=== PATIENT | male | born 1975 | race Caucasian/White ===

== ENCOUNTER 2018-01-17 10:43 | Inpatient (IN) | payer OTHER ==
--- NOTE | 2018-01-17 10:55 | ER Document Report ---
ED General - General Mode of Arrival: Medic Information source: Patient <MADDY BERNAL - Last Filed: 01/17/18 19:38> <MARIELOS BALTAZAR - Last Filed: 01/17/18 19:40> - General Stated Complaint: POSSIBLE SNAKE BITE Notes: 42 y.o male with a PMHx of anxiety for which he takes Paxil presents to the ED via EMS for a copperhead bite. 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 EMS reports no edema to LT hand upon arrival and denies giving any medication en route. EMS reports onset of edema at 1020 this morning, about 15 minutes after being with EMS, when remeasured at 1030 edema had increased. Pt is diaphoretic and cannot move his fingers well. He reports LT hand pain and nausea but denies any vomiting, trouble breathing or any CP. 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 denies: Chest pain Respiratory: See HPI. denies: Short of breath Gastrointestinal: See HPI, Nausea. denies: Vomiting Genitourinary: No symptoms reported Male Genitourinary: No symptoms reported Musculoskeletal: See HPI, Other - LT hand pain Skin: See HPI, Other - Snake bite, edema Hematologic/Lymphatic: No symptoms reported Neurological/Psychological: No symptoms reported -: Yes All other systems reviewed and negative <MADDY BERNAL - Last Filed: 01/17/18 19:38> Physical Exam <MADDY BERNAL - Last Filed: 01/17/18 19:38> <MARIELOS BALTAZAR - Last Filed: 01/17/18 19:40> - Vital signs Vitals: Resp Pulse Ox 9 L 100 01/17/18 11:00 01/17/18 11:00 - Notes Notes: PHYSICAL EXAM GENERAL: Alert, interacts well. No acute distress. HEAD: Normocephalic, atraumatic. EYES: Pupils equal, round, and reactive to light. Extraocular movements intact. ENT: Oral mucosa moist, tongue midline. NECK: Full range of motion. Supple. Trachea midline. LUNGS: Clear to auscultation bilaterally, no wheezes, rales, or rhonchi. No respiratory distress. HEART: Regular rate and rhythm. No murmurs, gallops, or rubs. ABDOMEN: Soft, non-tender. Non-distended. Bowel sounds present in all 4 quadrants. No guarding, rebound, or rigidity. EXTREMITIES: See Skin below. Limited ROM to LT hand and fingers, full ROM to all other extremities. Radial and dorsalis pedis pulses 2/4 bilaterally. No cyanosis. NEUROLOGICAL: Alert and oriented x3. Normal speech. PSYCH: Mildly anxious. SKIN: Warm. Diaphoretic. One puncture wound to ulnar aspect of the LT fourth finger with small amount of active bleeding, second puncture is to the radial aspect of the LT fourth finger proximal to the PIP joint. Puncture wounds approximately 12mm apart. Good capillary refill. Erythema and moderate swelling to the LT hand over the 3rd, 4th and 5th metacarpals, no erythema or edema extending over the LT wrist. (MADDY BERNAL) Course - Laboratory Result Diagrams: 01/17/18 17:18 01/17/18 10:59 <MADDY BERNAL - Last Filed: 01/17/18 19:38> - Laboratory Result Diagrams: 01/17/18 17:18 01/17/18 10:59 <MARIELOS BALTAZAR - Last Filed: 01/17/18 19:40> - Re-evaluation Re-evalutation: 01/17/18 13:[address] Silver that because there is no evidence of compartment syndrome at this point he will not admit the patient. (MADDY BERNAL) 01/17/18 14:36 Initially patient did have significant swelling to the left hand which was progressing, patient was given 4 vials of CroFab IV the given the degree of swelling in the fact that this happened to his hand which is high risk for compartment syndrome, swelling continues to progress, patient is given 4 more vials of CroFab after the initial 4 vials, and is elevated, patient was discussed with Dr. Silver who states that the only thing he would consult on this patient for would be if he had compartment syndrome, as I do not currently suspect compartment syndrome Dr. Silver declines to admit this patient. I did discuss with Shyla Egan nurse practitioner from the hospitalist service who agrees to admit the patient to their service. CBC unremarkable, platelets normal, coag studies normal, chemistries unremarkable, no indication to transfer to a tertiary center. 01/17/18 19:40 After discussing with the nursing medical assistant supervisor the frequency of checks that this patient will need patient's unit was changed from medical floor to ICU. (MARIELOS BALTAZAR) - Vital Signs Vital signs: Temp Pulse Resp BP Pulse Ox 97.5 F 54 L 18 122/88 H 97 01/17/18 18:48 01/17/18 18:48 01/17/18 18:48 01/17/18 18:48 01/17/18 18:48 - Laboratory Laboratory results interpreted by me: 01/17/18 01/17/18 10:59 10:59 RDW 14.1 H Glucose 147 H Discharge <MADDY BERNAL - Last Filed: 01/17/18 19:38> - Discharge Admitting Provider: Hospitalist - DARLENE Egan Unit Admitted: ICU <MARIELOS BALTAZAR - Last Filed: 01/17/18 19:40> - Discharge Clinical Impression: Snake bite Qualifiers: Encounter type: initial encounter Qualified Code(s): W59.11XA - Bitten by nonvenomous snake, initial encounter Snake envenomation Qualifiers: Encounter type: initial encounter Injury intent: accidental or unintentional Qualified Code(s): T63.001A - Toxic effect of unspecified snake venom, accidental (unintentional), initial encounter Condition: Fair Disposition: ADMITTED INPATIENT Scribe Attestation: 01/17/18 19:40 I personally performed the services described in the documentation, reviewed and edited the documentation which was dictated to the scribe in my presence, and it accurately records my words and actions. (MARIELOS BALTAZAR) Scribe Documentation - Scribe Written by Scribe:: Farheen Bernal 01/17/18 1057 acting as scribe for :: Gisela <MADDY BERNAL - Last Filed: 01/17/18 19:38>
[2018-01-17] MEDS ORDERED: NORMAL SALINE 1000 ML 1,000 ML IV ONE (10:58)
[2018-01-17] MEDS ORDERED: ANTIVENIN,CROTALIDAE FAB(OVIN) INJ 1 VIAL IV ONE ×2 (10:58→13:23)
[2018-01-17] MEDS ORDERED: MORPHINE SULFATE 10 MG/ML INJ IV ONE (11:01)
[2018-01-17 11:14] LABS: ABSOLUTE EOSINOPHILS # (AUTO) 0.1 10^3/uL (0.0-0.6); ABSOLUTE MONOCYTES (AUTO) 0.6 10^3/uL (0.1-1.4); ABSOLUTE NEUT (AUTO) 5.4 10^3/uL (1.7-8.2); BASOPHILS % (AUTO) 0.5 % (0-2); EOSINOPHILS % (AUTO) 0.7 % (0-6); HEMATOCRIT 46.2 % (37.9-51.0); LYMPHOCYTES % (AUTO) 39.4 % (13-45); MEAN CORPUSCULAR HGB CONC 34.5 g/dL (32.0-36.0); MEAN CORPUSCULAR VOLUME 87 fl (80-97); MONOCYTES % (AUTO) 5.8 % (3-13); PLATELET COUNT 284 10^3/uL (150-450); RED BLOOD COUNT 5.32 10^6/uL (4.35-5.55); RED CELL DISTRIBUTION WIDTH 14.1 % (11.5-14.0); SEGMENTED NEUTROPHILS % (AUTO) 53.6 % (42-78); TOTAL CELLS COUNTED % (AUTO) 100 %; WHITE BLOOD COUNT 10.1 10^3/uL (4.0-10.5)
[2018-01-17 11:24] LABS: FIBRINOGEN 359 mg/dL (209-497); INTERNATIONAL RATION (INR) 0.95; PROTHROMBIN TIME 13.2 SEC (11.4-15.4)
[2018-01-17 11:27] LABS: D-DIMER 0.38 ug/mL (0.00-0.50)
[2018-01-17 11:35] LABS: ANION GAP 15 (5-19); BLOOD UREA NITROGEN 13 mg/dL (7-20); CALCIUM 9.9 mg/dL (8.4-10.2); CARBON DIOXIDE 23 mmol/L (22-30); CHLORIDE 106 mmol/L (98-107); CREATINE KINASE 87 U/L (55-170); GLUCOSE 147 mg/dL (75-110); POTASSIUM 3.9 mmol/L (3.6-5.0); SODIUM 143.6 mmol/L (137-145)
[2018-01-17 16:02] LABS: APPEARANCE,URINE SLIGHTLY-CLOUDY; BILIRUBIN,URINE NEGATIVE (NEGATIVE); COLOR,URINE YELLOW; GLUCOSE, URINE NEGATIVE (NEGATIVE); KETONES,URINE NEGATIVE (NEGATIVE); LEUKOCYTE ESTERASE,URINE NEGATIVE (NEGATIVE); NITRITE,URINE NEGATIVE (NEGATIVE); PROTEIN,URINE 30 mg/dL (NEGATIVE); URINE SPECIFIC GRAVITY 1.026; UROBILINOGEN,URINE NEGATIVE mg/dL (<2.0)
[2018-01-17] MEDS ORDERED: MAG HYDROX/AL HYDROX/SIMETH SUSP 30 ML UDCUP PO PRN (16:12)
[2018-01-17] MEDS ORDERED: ZOLPIDEM TARTRATE 5 MG TABLET PO PRN (16:12)
[2018-01-17] MEDS ORDERED: IPRATROPIUM/ALBUTEROL 0.5-2.5 MG/3 ML AMPUL NEB PRN (16:12)
[2018-01-17] MEDS ORDERED: MAGNESIUM HYDROXIDE SUSP 30 ML UDCUP PO PRN (16:12)
[2018-01-17] MEDS ORDERED: ONDANSETRON HCL INJ/PF 4 MG/2 ML SDV IV PRN (16:12)
[2018-01-17] MEDS: HYDROMORPHONE HCL INJ/PF 2 MG/ML AMPULE IV PRN ×2 (16:28→23:15)
[2018-01-17] MEDS ORDERED: ACETAMINOPHEN 325 MG TABLET PO PRN (16:30)
[2018-01-17 17:25] LABS: HEMATOCRIT 43.3 % (37.9-51.0); HEMOGLOBIN 14.7 g/dL (13.5-17.0); MEAN CORPUSCULAR HEMOGLOBIN 29.5 pg (27.0-33.4); MEAN CORPUSCULAR VOLUME 87 fl (80-97); PLATELET COUNT 256 10^3/uL (150-450); RED CELL DISTRIBUTION WIDTH 13.8 % (11.5-14.0); WHITE BLOOD COUNT 15.8 10^3/uL (4.0-10.5)
[2018-01-17 17:30] LABS: PROTHROMBIN TIME 13.7 SEC (11.4-15.4)
[2018-01-17 17:31] LABS: FIBRINOGEN 322 mg/dL (209-497)
--- NOTE | 2018-01-17 20:18 | PDOC H&P ---
History of Present Illness Admission Date/PCP: 01/17/18 15:37 Patient complains of: Copperhead snake bite right ring finger History of Present Illness: MYRA KEVIN is a 42 year old male with a past medical history significant only for Crohn's disease (does not require medications) and anxiety who presented to the emergency department this morning after a copperhead bite to his left fourth finger at the PIP joint. The snake was killed and photographs were available to confirm snake species. The patient received 4 vials of CroFab which was repeated 3-1/2 hours later due to continued progression of his edema, erythema, and pain. Evaluation in the emergency department determined that the patient's vital signs were stable, he did not have systemic symptoms, and laboratory evaluation was normal. He is referred to the hospitalist service for observational admission of snakebite/envenomation. Past Medical History Cardiac Medical History: Reports: None Pulmonary Medical History: Reports: None EENT Medical History: Reports: None Neurological Medical History: Reports: None Endocrine Medical History: Reports: None Renal/ Medical History: Reports: None Malignancy Medical History: Reports: None GI Medical History: Reports: Crohn's Disease Musculoskeltal Medical History: Reports: None Skin Medical History: Reports: None Psychiatric Medical History: Reports: General Anxiety Disorder Traumatic Medical History: Reports: None Hematology: Reports: None Infectious Medical History: Reports: None Past Surgical History Past Surgical History: Reports: None Social History Information Source: Patient Lives with: Alone Smoking Status: Current Every Day Smoker Frequency of Alcohol Use: Occasional Hx Recreational Drug Use: No Hx Prescription Drug Abuse: No - Advance Directive Resuscitation Status: Full Code Surrogate healthcare decision maker:: The patient's mother, Dolores Angela, Family History Family History: Malignancy, Other - Crohn's Family History: Father of brain aneurysm in his 40s Parental Family History Reviewed: Yes Children Family History Reviewed: No Sibling(s) Family History Reviewed.: No Medication/Allergy Home Medications: Paroxetine HCl [Paxil 20 mg Tablet] 20 mg PO DAILY 01/17/18 Allergies/Adverse Reactions: No Known Allergies Allergy (Verified 01/17/18 11:37) Review of Systems Constitutional: ABSENT: chills, fever(s), headache(s), weight gain, weight loss Eyes: ABSENT: visual disturbances Ears: ABSENT: hearing changes Cardiovascular: ABSENT: chest pain, dyspnea on exertion, edema, orthropnea, palpitations Respiratory: ABSENT: cough, hemoptysis Gastrointestinal: ABSENT: abdominal pain, constipation, diarrhea, hematemesis, hematochezia, nausea, vomiting Genitourinary: ABSENT: dysuria, hematuria Musculoskeletal: ABSENT: joint swelling Integumentary: PRESENT: as per HPI, erythema, wounds - Snake bite posterior left fourth digit at PIP, other - Edema. ABSENT: rash Neurological: ABSENT: abnormal gait, abnormal speech, confusion, dizziness, focal weakness, syncope Psychiatric: ABSENT: anxiety, depression, homidical ideation, suicidal ideation Endocrine: ABSENT: cold intolerance, heat intolerance, polydipsia, polyuria Hematologic/Lymphatic: ABSENT: easy bleeding, easy bruising Physical Exam Vital Signs: Temp Pulse Resp BP Pulse Ox 97.5 F 54 L 18 122/88 H 97 01/17/18 18:48 01/17/18 18:48 01/17/18 18:48 01/17/18 18:48 01/17/18 18:48 Intake & Output 01/16/18 01/17/18 01/18/18 06:59 06:59 06:59 Weight 82.7 kg General appearance: PRESENT: no acute distress, well-developed, well-nourished Head exam: PRESENT: atraumatic, normocephalic Eye exam: PRESENT: conjunctiva pink, EOMI, PERRLA. ABSENT: scleral icterus Ear exam: PRESENT: normal external ear exam Mouth exam: PRESENT: moist, tongue midline Neck exam: ABSENT: carotid bruit, JVD, lymphadenopathy, thyromegaly Respiratory exam: PRESENT: clear to auscultation jung, symmetrical, unlabored. ABSENT: rales, rhonchi, wheezes Cardiovascular exam: PRESENT: RRR, +S1, +S2. ABSENT: diastolic murmur, rubs, systolic murmur Pulses: PRESENT: normal dorsalis pedis pul Vascular exam: PRESENT: normal capillary refill GI/Abdominal exam: PRESENT: normal bowel sounds, soft. ABSENT: distended, guarding, mass, organolmegaly, rebound, tenderness Rectal exam: PRESENT: deferred Extremities exam: PRESENT: other - Left fourth digit with 2 small puncture wounds just proximal to the PIP, ecchymosis noted to left fourth finger. Edema and erythema extending to antecubital region; areas marked with pen marker.. ABSENT: calf tenderness, clubbing, pedal edema Musculoskeletal exam: PRESENT: ambulatory Neurological exam: PRESENT: alert, awake, oriented to person, oriented to place , oriented to time, oriented to situation, CN II-XII grossly intact. ABSENT: motor sensory deficit Psychiatric exam: PRESENT: appropriate affect, normal mood. ABSENT: homicidal ideation, suicidal ideation Skin exam: PRESENT: dry, warm, other - As above. ABSENT: cyanosis, rash Results Laboratory Results: 01/17/18 17:18 01/17/18 01/17/18 15:46 17:18 WBC 15.8 H RBC 5.00 Hgb 14.7 Hct 43.3 MCV 87 MCH 29.5 MCHC 34.0 RDW 13.8 Plt Count 256 Urine Color YELLOW Urine Appearance SLIGHTLY-CLOUDY Urine pH 5.0 Ur Specific [place] 1.026 Urine Protein 30 H Urine Glucose (UA) NEGATIVE Urine Ketones NEGATIVE Urine Blood NEGATIVE Urine Nitrite NEGATIVE Ur Leukocyte Esterase NEGATIVE Urine WBC (Auto) 3 Urine RBC (Auto) 3 Assessment & Plan - Diagnosis (1) Snake envenomation Qualifiers: Encounter type: initial encounter Injury intent: accidental or unintentional Qualified Code(s): T63.001A - Toxic effect of unspecified snake venom, accidental (unintentional), initial encounter Is this a current diagnosis for this admission?: Yes Plan: The patient was bitten by a copperhead snake (species verified) approximately 1020 this a.m. He arrived to the emergency department via EMS, already with edema, erythema, and ecchymosis to his left fourth finger. He was provided 4 vials of CroFab by ED provider. He continued to have progression of edema, erythema, and pain extending to his elbow and so was provided a second round of 4 vials of CroFab. I spoke with Mara at poison control. She recommended observational admission, elevating the extremity as high as possible above his heart, keeping his arm straight (avoid all positions that place even a slight bend to the elbow), maintenance CroFab of 2 vials every 6 hours with repeat labs (PT/INR, fibrinogen , platelets) following CroFab administration. Poison control recommended IV Dilaudid for pain management stating that it was superior to morphine in cases of venomous snakebites. She reports that their travel journalist physician would be available as needed for assistance. A follow-up telephone consultation was placed to Dr. Meraz, trauma services at [facility]. Dr. Meraz supported the established plan and had no additional recommendations. He did state that he would be available for additional telephone consultations or transfer to tertiary center as needed. The patient is admitted to the ICU secondary to need for close monitoring. He has received 1 L of normal saline while in the ED. As both poison control and trauma services indicated a very low probability of compartment syndrome, he is placed on a regular diet. IV Dilaudid as needed for pain. Continue CroFab 2 vials every 6 hours 3 with follow-up PT/INR, platelets, fibrinogen 1 hour later. Continue monitoring closely for signs of compartment syndrome; measure circumference of edema hourly and notate in chart. Recommendations are that the patient be observed for at least 18 hours once progression of edema stops. Keep extremity elevated and elbow straight. Avoid ice. Limb restricted; no tourniquets, blood draws, blood pressures to the left extremity. (2) Anxiety Is this a current diagnosis for this admission?: Yes Plan: Continue the patient's home dose Paxil. (3) Leukocytosis Is this a current diagnosis for this admission?: Yes Plan: Likely reactionary to snake bite with envenomation. No indications for antibiotic therapy at this time. We will continue to monitor. - Time Time Spent: Greater than 70 Minutes Medications reviewed and adjusted accordingly: Yes - Inpatient Certification Based on my medical assessment, after consideration of the patient's comorbidities, presenting symptoms, or acuity I expect that the services needed warrant INPATIENT care.: Yes I certify that my determination is in accordance with my understanding of Medicare's requirements for reasonable and necessary INPATIENT services [42 CFR 412.3e].: Yes Medical Necessity: Risk of Complication if Not Cared For in Hospital, Risk of Diagnosis Which Will Require Inpatient Eval/Care/Monitoring
[2018-01-17] MEDS: ANTIVENIN,CROTALIDAE FAB(OVIN) INJ 1 VIAL IV SCH (21:10)
[2018-01-17] MEDS: HEPARIN SOD (PORCINE) 5,000 UNIT/ML 1 ML SYRINGE SUBCUT SCH (22:21)
[2018-01-17] MEDS: FAMOTIDINE 20 MG TABLET PO SCH (22:24)
[2018-01-18 01:06] LABS: ABSOLUTE EOSINOPHILS # (AUTO) 0.1 10^3/uL (0.0-0.6); ABSOLUTE LYMPHOCYTES (AUTO) 2.4 10^3/uL (0.5-4.7); ABSOLUTE NEUT (AUTO) 8.5 10^3/uL (1.7-8.2); BASOPHILS % (AUTO) 0.2 % (0-2); EOSINOPHILS % (AUTO) 1.1 % (0-6); LYMPHOCYTES % (AUTO) 19.7 % (13-45); MEAN CORPUSCULAR HEMOGLOBIN 28.9 pg (27.0-33.4); MEAN CORPUSCULAR HGB CONC 33.4 g/dL (32.0-36.0); MEAN CORPUSCULAR VOLUME 87 fl (80-97); PLATELET COUNT 225 10^3/uL (150-450); RED BLOOD COUNT 4.86 10^6/uL (4.35-5.55); TOTAL CELLS COUNTED % (AUTO) 100 %; WHITE BLOOD COUNT 11.9 10^3/uL (4.0-10.5)
[2018-01-18 01:13] LABS: FIBRINOGEN 329 mg/dL (209-497); INTERNATIONAL RATION (INR) 0.97; PROTHROMBIN TIME 13.4 SEC (11.4-15.4)
[2018-01-18] MEDS: ANTIVENIN,CROTALIDAE FAB(OVIN) INJ 1 VIAL IV SCH (03:20)
[2018-01-18] MEDS: HEPARIN SOD (PORCINE) 5,000 UNIT/ML 1 ML SYRINGE SUBCUT SCH (07:01)
[2018-01-18 07:47] LABS: HEMATOCRIT 40.8 % (37.9-51.0); HEMOGLOBIN 13.8 g/dL (13.5-17.0); MEAN CORPUSCULAR HEMOGLOBIN 29.5 pg (27.0-33.4); MEAN CORPUSCULAR HGB CONC 33.9 g/dL (32.0-36.0); MEAN CORPUSCULAR VOLUME 87 fl (80-97); PLATELET COUNT 220 10^3/uL (150-450); RED BLOOD COUNT 4.68 10^6/uL (4.35-5.55); RED CELL DISTRIBUTION WIDTH 14.1 % (11.5-14.0); WHITE BLOOD COUNT 11.2 10^3/uL (4.0-10.5)
[2018-01-18 08:02] LABS: INTERNATIONAL RATION (INR) 0.94; PROTHROMBIN TIME 13.1 SEC (11.4-15.4)
[2018-01-18 08:06] LABS: ALANINE AMINOTRANSFERASE 26 U/L (21-72); ALBUMIN 3.6 g/dL (3.5-5.0); ALKALINE PHOSPHATASE 58 U/L (38-126); ANION GAP 11 (5-19); ASPARTATE AMINO TRANSFERASE 17 U/L (17-59); BILIRUBIN,DIRECT 0.2 mg/dL (0.0-0.4); BLOOD UREA NITROGEN 10 mg/dL (7-20); CALCIUM 8.7 mg/dL (8.4-10.2); CARBON DIOXIDE 26 mmol/L (22-30); CHLORIDE 105 mmol/L (98-107); GLUCOSE 146 mg/dL (75-110); POTASSIUM 4.1 mmol/L (3.6-5.0); SODIUM 141.7 mmol/L (137-145); TOTAL PROTEIN 6.2 g/dL (6.3-8.2)
[2018-01-18 08:42] LABS: FIBRINOGEN 356 mg/dL (209-497)
[2018-01-18] MEDS ORDERED: KETOROLAC TROMETHAMINE INJ/PF 30 MG/1 ML SDV IV PRN (09:18)
[2018-01-18] MEDS ORDERED: OXYCODONE-ACETAMINOPHEN 5-325 MG TABLET PO PRN (09:18)
[2018-01-18] MEDS ORDERED: KETOROLAC TROMETHAMINE INJ/PF 30 MG/1 ML SDV IV ONE (09:18)
[2018-01-18] MEDS: FAMOTIDINE 20 MG TABLET PO SCH (09:53)
[2018-01-18] MEDS ORDERED: DOCUSATE SODIUM 100 MG CAPSULE PO SCH (10:00)
[2018-01-18] MEDS ORDERED: PAROXETINE HCL 20 MG TABLET PO SCH (10:00)
[2018-01-18 15:04] VITALS: BP 115/65
--- NOTE | 2018-01-22 12:26 | PDOC DISCHARGE SUMMARY ---
General - Admit/Disc Date/PCP Admission Date/Primary Care Provider: 01/17/18 15:37 Discharge Date: 01/22/18 - Discharge Diagnosis (1) Snake envenomation Is this a current diagnosis for this admission?: Yes (2) Anxiety Is this a current diagnosis for this admission?: Yes Summary: Stable; home medication was continued. (3) Leukocytosis Is this a current diagnosis for this admission?: Yes Summary: Resolved. - Additional Information Resuscitation Status: Full Code Discharge Diet: Regular Discharge Activity: Activity As Tolerated Prescriptions: Oxycodone HCl/Acetaminophen [Percocet 5-325 mg Tablet] 1 tab PO Q6HP PRN #12 tablet PRN Reason: Home Medications: Paroxetine HCl [Paxil 20 mg Tablet] 20 mg PO DAILY 01/17/18 Acetaminophen [Tylenol 325 mg Tablet] 650 mg PO Q4HP PRN tablet 01/18/18 Oxycodone HCl/Acetaminophen [Percocet 5-325 mg Tablet] 1 tab PO Q6HP PRN #12 tablet 01/18/18 History of Present Illness History of Present Illness: MYRA KEVIN is a 42 year old male with a past medical history significant only for Crohn's disease (does not require medications) and anxiety who presented to the emergency department this morning after a copperhead bite to his left fourth finger at the PIP joint. The snake was killed and photographs were available to confirm snake species. The patient received 4 vials of CroFab which was repeated 3-1/2 hours later due to continued progression of his edema, erythema, and pain. Evaluation in the emergency department determined that the patient's vital signs were stable, he did not have systemic symptoms, and laboratory evaluation was normal. He is referred to the hospitalist service for observational admission of snakebite/envenomation. Hospital Course Hospital Course: The patient was admitted for copperhead snake (species verified) bite to Lt 4th finger resulting in edema, erythema, spreading to just distal to elbow and ecchymosis to his left fourth finger. He was immediately provided 4 vials of CroFab by ED provider. He continued to have progression of edema, erythema, and pain extending to his elbow and so was provided a second round of 4 vials of CroFab while in the ED. Poison Control was contacted with recommendations for observational admission, elevating the extremity as high as possible above his heart, keeping his arm straight (avoid all positions that place even a slight bend to the elbow), maintenance CroFab of 2 vials every 6 hours as needed for progression of edema with repeat labs (PT/INR, fibrinogen, platelets) following CroFab administration. Poison control recommended IV Dilaudid for pain management stating that it was superior to morphine in cases of venomous snakebites. A follow-up telephone consultation was placed to Dr. Meraz, trauma services at [facility]. Dr. Meraz supported the established plan and had no additional recommendations. He did state that he would be available for additional telephone consultations or transfer to tertiary center as needed. The patient is admitted to the ICU secondary to need for close monitoring. He has received 1 L of normal saline while in the ED. IV Dilaudid as needed for pain. He did receive an additional round of CroFab 2 vials overnight x1 for continued progression of edema. His PT/INR, platelets, fibrinogen remained stable. His erythema and edema stabilized at approximately 0400; with noted decrease in circumference measurements at time of discharge. Prior to discharge, Poison Control was contacted again. They endorsed the patient being discharged to home with recommendations for continued elevation of the extremity and avoiding application of ice. Discharge instructions were reviewed with the patient. He was provided the opportunity to meet with discharge planning and was scheduled a follow up appointment with a local PCP. At time of discharge, the patient was in stable condition, demonstrating decreased edema to the extremity, with pain well controlled utilizing oral analgesics. Physical Exam Vital Signs: Temp Pulse Resp BP Pulse Ox 98.4 F 59 L 12 115/65 97 01/18/18 15:03 01/18/18 15:03 01/18/18 15:03 01/18/18 15:03 01/18/18 15:03 General appearance: PRESENT: no acute distress, well-developed, well-nourished Head exam: PRESENT: atraumatic, normocephalic Eye exam: PRESENT: conjunctiva pink, EOMI, PERRLA. ABSENT: scleral icterus Ear exam: PRESENT: normal external ear exam Mouth exam: PRESENT: moist, tongue midline Neck exam: ABSENT: carotid bruit, JVD, lymphadenopathy, thyromegaly Respiratory exam: PRESENT: clear to auscultation jung. ABSENT: rales, rhonchi, wheezes Cardiovascular exam: PRESENT: RRR. ABSENT: diastolic murmur, rubs, systolic murmur Pulses: PRESENT: normal dorsalis pedis pul Vascular exam: PRESENT: normal capillary refill GI/Abdominal exam: PRESENT: normal bowel sounds, soft. ABSENT: distended, guarding, mass, organolmegaly, rebound, tenderness Rectal exam: PRESENT: deferred Extremities exam: PRESENT: tenderness - LUE, other - Edema to RUE extending just distal to elbow; slightly decreased from time of admission yesterday. ROM limited secondary to edema. Sensation and capillary refil intact.. ABSENT: calf tenderness, clubbing, pedal edema Neurological exam: PRESENT: alert, awake, oriented to person, oriented to place , oriented to time, oriented to situation, CN II-XII grossly intact. ABSENT: motor sensory deficit Psychiatric exam: PRESENT: appropriate affect, normal mood. ABSENT: homicidal ideation, suicidal ideation Skin exam: PRESENT: dry, intact, warm. ABSENT: cyanosis, rash Results Laboratory Results: 01/18/18 07:39 01/18/18 07:39 Qualifiers - * PATIENT BEING DISCHARGED WITH ANY OF THE FOLLOWING DIAGNOSIS: No Plan Discharge Plan: Discharge to home with self care. Follow up with Primary Care Provider within 1 week. Pt instructed to call [place] Poison Control with questions or to return to the Emergency Department immediately for any concerning symptoms. Time Spent: Greater than 30 Minutes
== END 2018-01-18 15:12 | disposition home or self-care (01) | DRG 918 ==
LOC: ER 10:43 → EH 15:37 → OBSVTOIN 15:37 → INTOOBSV 15:37 → ICU 18:41
PROVIDERS: ADMIT Internal Medicine; ATTEND Internal Medicine
PROC: 3E0F73Z Introduction of Anti-inflammatory into Respiratory Tract, Via Natural or Artificial Opening (ICD-10-PCS; principal; 2018-01-17)
PROC: 3E0234Z Introduction of Serum, Toxoid and Vaccine into Muscle, Percutaneous Approach (ICD-10-PCS; 2018-01-17)
DX: T63.091A Toxic effect of venom of other snake, accidental (unintentional), initial encounter (principal); K50.90 Crohn's disease, unspecified, without complications; D72.829 Elevated white blood cell count, unspecified; Y92.9 Unspecified place or not applicable; F41.1 Generalized anxiety disorder; F17.210 Nicotine dependence, cigarettes, uncomplicated; Z60.2 Problems related to living alone; Z84.89 Family history of other specified conditions
CPT/HCPCS: 36415; 80048; 80053; 81001; 82550; 83874; 85025; 85027; 85362; 85379; 85384; 85610; 85730; 96365; 96366; 96375; 99285; J0840; J1170; J1885; J2270; J7030